=== PATIENT | female | born 1990 | race Caucasian/White ===

== ENCOUNTER 2021-03-11 07:49 | Emergency (ER) | payer SELFPAY ==
[~2021-03-11] VITALS: Ht 152.4 cm; Wt 63.3 kg
[2021-03-11 07:50] VITALS: BP 111/78
[2021-03-11] MEDS ORDERED: diphenhydrAMINE 50MG CAP PO ONE (08:15)
[2021-03-11] MEDS ORDERED: ACETAMINOPHEN 325 MG TAB PO ONE (08:15)
== END 2021-03-12 01:20 | disposition home or self-care (01) ==
LOC: M ED 07:49
DX: R51.9 Headache, unspecified (principal)